=== PATIENT | male | born 1965 | race Caucasian/White ===

== ENCOUNTER 2025-04-10 12:47 | Emergency (ER) | payer OTHER, SELFPAY ==
[2025-04-10 13:01] VITALS: BP 119/71
[2025-04-10 13:29] LABS: Hematocrit 47.9 % (39.0-52.0); Hemoglobin 16.7 g/dL (13.0-18.0); Mean Corp Hgb Conc. 34.9 g/dL (33.0-37.0); Mean Corpuscular Volume 84.2 fL (80.0-94.0); Nucleated Red Blood Cells % 0 % (-); Platelet Count 206 10^3/uL (130-400); Red Cell Dist. Width 12.3 % (11.5-14.5)
[2025-04-10 13:57] LABS: ALT (SGPT) 21 U/L (0-50); AST (SGOT) 16 U/L (17-59); Albumin 4.8 g/dl (3.5-5.0); Alkaline Phosphatase 54 U/L (38-126); Blood Urea Nitrogen 12 mg/dl (9-20); Calcium 9.5 mg/dl (8.4-10.2); Carbon Dioxide 24 mmol/L (22-30); Chloride 103 mmol/L (98-107); Glucose 90 mg/dl (70-99); Lipase 1140 U/L (23-300); Potassium 4.5 mmol/L (3.5-5.1); Sodium 136 mmol/L (135-145); Total Protein 7.3 g/dl (6.3-8.2); eGFR > 60.00
--- NOTE | 2025-04-10 14:39 | ED.GENMED ---
History of Present Illness
<Magdalene Rodríguez MD, Resident - Last Filed: 04/11/25 07:14>
General
Chief Complaint: Abdominal Symptoms
Source: patient and significant other
Exam Limitations: none
Time Seen by Provider: 04/10/25 14:37
Nursing documentation reviewed up to this point in time: agreed with
History of Present Illness
History of Present Illness:
59yo M with no significant PMH who presents with subacute vomiting & diarrhea.
Pt reports that Sunday evening he began having high volume/frequency diarrhea, which progressed to vomiting on Sunday. Since then, he has not been table to keep down any significant PO intake. No blood in the stool or vomitus. Endorses some
heartburn that began after the emesis, took an OTC famotidine yesterday. Denies fever/chills or abdominal pain. Endorses lightheadedness. Denies any sick contacts. Traveled last week on a plane to [place] for work. Sx began after he ate leftover pizza,
which had made his family have mild stomach upset when it was fresh. Denies recent abx use.
Denies any hx of gallstones, denies alcohol consumption, denies hx of HLD, denies hx pancreatitis. Started zepbound this yr and lost 75lbs.
Past History
<Magdalene Rodríguez MD, Resident - Last Filed: 04/11/25 07:14>
Past History
ED Past Medical History: None
ED Past Surgical History: None
Patient has exhibited threatening behavior?: No
Social History
Alcohol: None
Personal:
Living: with family
Review of Systems
<Magdalene Rodríguez MD, Resident - Last Filed: 04/11/25 07:14>
Review of Systems
Allergies reviewed?: Yes
All Other Systems: ROS reviewed and negative except as documented in HPI and ROS
Constitutional: Reports no symptoms
EENT: Reports no symptoms
Respiratory: Reports no symptoms
Cardiac: Reports no symptoms
ABD/GI: Reports vomiting and diarrhea
: Reports no symptoms
Skin: Reports no symptoms
Neurological: Reports dizzy
Psychiatric: Reports no symptoms
Phy Exam
<Magdalene Rodríguez MD, Resident - Last Filed: 04/11/25 07:14>
General Physical Exam
General Presentation: no apparent distress
General Skin: warm and dry
General Habitus: normal
General Mental: alert
Cardiovascular Exam
Cardiovascular Exam: regular rate/rhythm and no edema
Heart Sounds: normal
Pulmonary Exam
Pulmonary Exam: no respiratory distress
Gastrointestinal Exam
Gastrointestinal Exam: non tender, soft and non distended
Neurological Exam
Neurological Exam: alert
Skin Exam
Skin Exam: normal color and warm/dry
Psychiatric Exam
Psychiatric Exam: normal mood/affect
Course
<Magdalene Rodríguez MD, Resident - Last Filed: 04/11/25 07:14>
Orders/Labs/Results
Orders:
Orders
04/10/25 13:05
Electrocardiogram (*1) Urgent
Reason for Study: Abdominal Pain
EKG- Treatment ONCE
04/10/25 13:17
Complete Blood Count/With Diff Urgent
Comprehensive Metabolic Panel Urgent
Lipase Urgent
04/10/25 15:05
CT Abd/pelvis W Iv Cont Urgent
Comment:
Reason For Exam: elevated lipase c/f pancreatitis
0.9% Sodium Chloride 1000 ml [Nss] 1,000 ml IV BOLUS
Ondansetron Orally Disint [Zofran Odt (Orally Disintegrating)] 4 mg PO NOW STA
Abnormal Lab Results
04/10/25
13:17
Absolute Monos (auto) 0.7 H 10^3/uL
(0.1-0.6)
Lymphocytes % 15.8 L %
(20.5-51.1)
Total Bilirubin 1.7 H mg/dl
(0.2-1.3)
AST 16 L U/L
(17-59)
Lipase 1140 H* U/L
(23-300)
04/10/25 13:17
04/10/25 13:17
Vital Signs
Initial and Last Documented VS:
Initial Vital Signs
Temp Pulse Resp BP Pulse Ox
98.4 F 102 16 119/71 97
04/10/25 13:01 04/10/25 13:01 04/10/25 13:01 04/10/25 13:01 04/10/25 13:01
Last Documented Vital Signs
Temp Pulse Resp BP Pulse Ox
98.4 F 91 16 103/64 95
04/10/25 13:01 04/10/25 20:47 04/10/25 20:47 04/10/25 20:47 04/10/25 20:47
<Ambrose Hussein, DO - Last Filed: 04/10/25 19:58>
Orders/Labs/Results
Orders:
Orders
04/10/25 13:05
Electrocardiogram (*1) Urgent
Reason for Study: Abdominal Pain
EKG- Treatment ONCE
04/10/25 13:17
Complete Blood Count/With Diff Urgent
Comprehensive Metabolic Panel Urgent
Lipase Urgent
04/10/25 15:05
CT Abd/pelvis W Iv Cont Urgent
Comment:
Reason For Exam: elevated lipase c/f pancreatitis
0.9% Sodium Chloride 1000 ml [Nss] 1,000 ml IV BOLUS
Ondansetron Orally Disint [Zofran Odt (Orally Disintegrating)] 4 mg PO NOW STA
Abnormal Lab Results
04/10/25
13:17
Absolute Monos (auto) 0.7 H 10^3/uL
(0.1-0.6)
Lymphocytes % 15.8 L %
(20.5-51.1)
Total Bilirubin 1.7 H mg/dl
(0.2-1.3)
AST 16 L U/L
(17-59)
Lipase 1140 H* U/L
(23-300)
04/10/25 13:17
04/10/25 13:17
Vital Signs
Initial and Last Documented VS:
Initial Vital Signs
Temp Pulse Resp BP Pulse Ox
98.4 F 102 16 119/71 97
04/10/25 13:01 04/10/25 13:01 04/10/25 13:01 04/10/25 13:01 04/10/25 13:01
Last Documented Vital Signs
Temp Pulse Resp BP Pulse Ox
98.4 F 91 16 103/64 95
04/10/25 13:01 04/10/25 20:47 04/10/25 20:47 04/10/25 20:47 04/10/25 20:47
<Magdalene Rodríguez MD, Resident - Last Filed: 04/11/25 07:14>
MDM/Problems Addressed
Differential Diagnosis Includes:
Ddx:
Food-borne gastroenteritis, bacterial toxin mediated (time course after leftover food)
Viral gastroenteritis (no sick contacts, but recent air travel)
Pancreatitis (elevated lipase, no pain radiating to back, presentation w voluminous diarrhea less c/w pancreatitis)
C diff (unlikely w vomiting & no recent abx use)
MDM/Problems Addressed:
Plan:
- 1L NSS bolus
- Zofran
- Stool cx
- CBC, CMP
- EKG
- CT a/p w IV contrast
<Magdalene Rodríguez MD, Resident - Last Filed: 04/11/25 07:14>
*Pulse Oximetry
SaO2: 97
Oxygen Mode of Delivery: Room air
Patient hypoxic: no
*Critical Care Note
Total Time (30-74mins, 75-104mins- exclusive of procedures): Not Applicable
ED Attending Note
<Magdalene Rodríguez MD, Resident - Last Filed: 04/11/25 07:14>
-
Portions of this chart may have been created with voice recognition software.� Occasional wrong word or��sound alike� substitutions may have occurred due to the inherent limitations of voice recognition software.
<Ambrose Hussein DO - Last Filed: 04/10/25 19:58>
ED Attending Note
Patient seen and examined by attending physician: Yes
I performed the substantive portion of visit, reviewed & personally made and approve the management plan that is documented in note by myself or RYLIE.: Yes
I performed a history and physical exam of patient and discussed management with resident, I reviewed resident's note and agree with documented findings and plan of care.: Yes
ED Attending Note:
59-year-old male presents to the ER for evaluation of nausea vomiting and diarrhea which started on Sunday. Patient believes that he ate bad food as other family numbers have similar abdominal symptoms. He has not had any vomiting since yesterday
but was having significant abdominal cramping along with diarrhea since yesterday. He is currently on Zepbound, last dose was on Sunday. He denies pain at time of exam and feel significantly better after IV fluids and Zofran. Vital signs
reviewed, patient is awake, alert, appears no acute distress, mucous membranes moist, conjunctiva pink, abdomen is soft and nontender on palpation, no guarding or rebound, GCS is 15. I discussed with patient and present at bedside all test
results including negative CT scan, and clear etiology of elevation in lipase, no CT evidence for pancreatitis. I discussed with them plan for potential discharge home if he is able to tolerate p.o. Will provide prescription Zofran. I discussed
with them strict return precautions and also advised him to contact their primary care provider on Sunday to discuss whether or not he should take his next dose of Zepbound. They expressed understanding of plan and have no questions at the current
time.
Discharge Plan
Departure
Patient Disposition: Home (Routine Discharge)
Date of Disposition: 04/10/25
Time of Disposition: 20:42
Patient with high blood pressure during this ER visit?: No
Discharge Problem:
Diarrhea, Abdominal pain, Elevated lipase
Instructions: Nausea and Vomiting, Adult (DC), Diarrhea in adults - ED (DC), Abdominal Pain
Prescriptions:
New
ondansetron 4 mg tablet,disintegrating
4 mg PO TIDPRN PRN (Reason: nausea/vomiting) Qty: 10 0RF
No Action
hydroxychloroquine [Plaquenil] 200 mg Tablet
200 mg PO QPM
tamsulosin [Flomax] 0.4 mg Capsule
0.8 mg PO HS
escitalopram oxalate [Lexapro] 10 mg Tablet
10 mg PO DAILY
Zepbound 10 mg/0.5 mL Pen Injector
10 mg SC MO
Referrals:
Sulaiman Chino MD [Family Provider, Family Practice]
Activity Restrictions/Additional Instructions:
Use Zofran as needed for nausea. Encourage fluids. Please follow a bland diet (rice, bananas, applesauce, toast) until your symptoms resolve. Please follow-up with your doctor on Sunday to discuss abnormal LIPASE results and to determine if you
should resume taking your Zepbound as prescribed. Return to the ER for any concerns
Interventions
Interventions:
*Risk Screen - Suicide Last Done: 04/10/25 13:01
*General Assessment Last Done: 04/10/25 15:21
*Neglect/Abuse Screening Last Done: 04/10/25 13:01
*ED- Fall Risk Assessment Last Done: 04/10/25 15:21
*ED COVID-19 Vaccine History Last Done: 04/10/25 15:21
*ED Influenza Vaccine History Last Done: 04/10/25 15:21
*Nursing Disposition Last Done: 04/10/25 20:51
EF-Rlpcnj-Brxuqnxemo Assessment Last Done: 04/10/25 15:41
Discharge Date and Time
Discharge Date/Time: 04/10/25 20:55
Print Language: MARSHALLESE
[2025-04-10 15:21] VITALS: BMI 27.2
[2025-04-10] MEDS: NSS 1000 IV (15:22)
[2025-04-10] MEDS: ZOFRAN ODT (ORALLY DISINTEGRATING) 4 MG PO (15:23)
[2025-04-10 15:24] VITALS: BP 110/72
[2025-04-10 20:47] VITALS: BP 103/64
== END 2025-04-10 20:55 | disposition home or self-care (01) ==
LOC: EMR 12:47
PROVIDERS: Student in an Organized Health Care Education/Training Program; EMERGENCY PHYSICIAN Emergency Medicine; FAMILY PHYSICIAN Family Medicine
DX: R19.7 Diarrhea, unspecified (principal); R10.9 Unspecified abdominal pain; R74.8 Abnormal levels of other serum enzymes
CPT/HCPCS: 99284; 96360; 74177; 80053; 83690; 85025; 93005; Q9967